=== PATIENT | male | born 1990 | race Caucasian/White ===

== ENCOUNTER 2018-12-20 15:32 | Emergency (ER) | payer OTHER ==
[2018-12-20 16:17] VITALS: BP 135/84; PULSE 88; TEMP 97.7; BMI 21.2
[2018-12-20] MEDS ORDERED: morphine CARPU-JECT 4 MG/1 ML DISP.SYRIN IVPUSH ONE (16:32)
[2018-12-20] MEDS ORDERED: CLINDAMYCIN 600MG PREMIX IVPB 600 MG/50 ML BAG IVPB ONE (16:32)
[2018-12-20] MEDS ORDERED: ONDANSETRON 4 MG/2 ML VIAL ONE ×2 (16:55→17:12)
[2018-12-20] MEDS ORDERED: morphine SULFATE 4 MG/ML VIAL ONE (16:55)
[2018-12-20] MEDS ORDERED: LIDOCAINE 1%/EPI 1:100000 (20 ML MULTI DOSE VIAL) INF ONE (17:09)
[2018-12-20] MEDS ORDERED: LIDOCAINE HCL 2% (20ML MULTI-DOSE VIAL) NR ONE (17:12)
[2018-12-20 17:13] LABS: BASO % 0.5 % (0-2.0); EOS % 0.5 % (0-4.5); HEMATOCRIT 50.7 % (35.4-49); HEMOGLOBIN 16.8 GM/dl (11.7-16.9); LYMPH % 16.2 % (8-40); MCH 28.5 pg (25.7-33.7); MCHC 33.1 g/dl (32.0-35.9); MEAN PLT VOLUME 9.1 fl (7.5-11.1); MONO % 4.5 % (3.8-10.2); NEUT % 78.3 % (42.8-82.8); PLATELET COUNT 263 K/MM3 (134-434); RBC 5.89 M/mm3 (4.00-5.60); RDW 11.8 % (11.9-15.9); WHITE BLOOD COUNT 12.4 K/mm3 (4.0-10.8)
[2018-12-20 17:27] LABS: BILIRUBIN,TOTAL 0.8 mg/dl (0.2-1); CALCIUM 9.7 mg/dl (8.5-10); CREATININE 0.8 mg/dl (0.55-1.3); POTASSIUM 4.7 mmol/L (3.5-5.1); TOT PROT 7.3 g/dl (6.4-8.2)
--- NOTE | 2018-12-20 17:41 | PDOC ---
Documentation entered by Josefina Dow SCRIBE, acting as scribe for Paula Boggs MD. Paula Boggs MD: This documentation has been prepared by the scribeVictor M Lincy, SCRIBE, under my direction and personally reviewed by me in its entirety. I confirm that the documentation accurately reflects all work, treatment, procedures, and medical decision making performed by me. History of Present Illness - General Chief Complaint: Abscess Boil Stated Complaint: PERIRECTSAL ABSCESS History Source: Patient Exam Limitations: No Limitations - History of Present Illness Initial Comments: 12/20/18 16:40 The patient is a 28-year-old male with a past medical history significant for DM presents to the emergency department with an abscess to the upper inner thigh adjacent to his scrotum. The patient reports he noticed a small boil to the region on Saturday, hes been applying hot water to the area without relief. The patient reports on Saturday the boil has increased in size, and today he had pain with ambulation secondary to the boil. Denies fever or chills. Last glucose level was 175 at 3:00 pm today, which is at baseline for the patient. Allergies: NKDA Past History - Past Medical History Allergies/Adverse Reactions: Allergies Allergy/AdvReac Type Severity Reaction Status Date / Time No Known Allergies Allergy Verified 07/23/13 12:30 Home Medications: Ambulatory Orders Levothyroxine [Synthroid -] 125 mcg PO DAILY 07/23/13 Cholecalciferol (Vitamin D3) [Vitamin D] 3,000 unit PO DAILY 05/09/14 Lisinopril [Prinivil] 10 mg PO DAILY 05/09/14 Clindamycin [Cleocin -] 600 mg PO Q8H #30 capsule 12/20/18 Ibuprofen 800 mg PO TID PRN #30 tablet 12/20/18 Insulin Aspart [Novolog] 0 unit SQ ASDIR 12/20/18 Oxycodone HCl/Acetaminophen [Percocet 5-325 mg Tablet] 1 tab PO Q6H PRN #6 tablet MDD 6 12/20/18 Asthma: Yes (NO MEDS) Diabetes: Yes (INSULIN PUMP) Thyroid Disease: Yes (HYPOTHYROID) - Surgical History Abdominal Surgery: Yes (RIGHT INGUINAL HERNIA) - Immunization History Immunization Up to Date: Yes - Suicide/Smoking/Psychosocial Hx Smoking History: Never smoked Have you smoked in the past 12 months: No Hx Alcohol Use: No Substance Use Type: None Review of Systems - Review of Systems Able to Perform ROS?: Yes Comments:: 12/20/18 16:41 GENERAL/CONSTITUTIONAL: No fever or chills. No weakness. HEAD, EYES, EARS, NOSE AND THROAT: No change in vision. No ear pain or discharge. No sore throat. CARDIOVASCULAR: No chest pain or shortness of breath. RESPIRATORY: No cough, wheezing, or hemoptysis. GASTROINTESTINAL: No nausea, vomiting, diarrhea or constipation. GENITOURINARY: No dysuria, frequency, or change in urination. MUSCULOSKELETAL: No joint or muscle swelling or pain. No neck or back pain. SKIN: +abscess to the upper inner thigh adjacent to his scrotum. No rash. NEUROLOGIC: No headache, vertigo, loss of consciousness, or change in strength/ sensation. ENDOCRINE: No increased thirst. No abnormal weight change. HEMATOLOGIC/LYMPHATIC: No anemia, easy bleeding, or history of blood clots. ALLERGIC/IMMUNOLOGIC: No hives or skin allergy. *Physical Exam - Vital Signs Last Vital Signs Temp Pulse Resp BP Pulse Ox 97.7 F 88 18 135/84 100 12/20/18 15:33 12/20/18 15:33 12/20/18 15:33 12/20/18 15:33 12/20/18 15:33 - Physical Exam Comments: 12/20/18 16:45 General: awake, in no acute distress. Heart: regular rate and rhythm Lung: Breath sounds equal, clear to auscultation bilaterally. No wheezes, and no crackles Abdomen: soft, nontender, nondistended, insulin pump in place. Neurological: Alert, and oriented x3, cranial nerve grossly intact. Ambulatory with a normal gait. Skin: +abscess near his scrotum. Procedures - Incision and Drainage I&D Site: Right: Groin Betadine cleansed: No (cleansed with chlorhexidine) Anesthesia: 2% Lidocaine Volume(ml): 17 Blade Size: 11 Attempts: 1 Plain Packing: No (wound left open) Complications: none Dressing: Yes ED Treatment Course - LABORATORY CBC & Chemistry Diagram: 12/20/18 17:00 12/20/18 17:00 - ADDITIONAL ORDERS Additional order review: Laboratory Results 12/20/18 17:00 Sodium 138 Potassium 4.7 Chloride 102 Carbon Dioxide 30 Anion Gap 6 L BUN 17.0 Creatinine 0.8 Est GFR (CKD-EPI)AfAm 142.89 Est GFR (CKD-EPI)NonAf 123.29 Random Glucose 111 H Calcium 9.7 Total Bilirubin 0.8 AST 15 ALT 12 L Alkaline Phosphatase 122 H Total Protein 7.3 Albumin 4.0 12/20/18 17:00 RBC 5.89 H MCV 86.0 MCHC 33.1 RDW 11.8 L MPV 9.1 Neutrophils % 78.3 Lymphocytes % 16.2 Monocytes % 4.5 Eosinophils % 0.5 Basophils % 0.5 D - Medications Given in the ED: ED Medications Discontinued Medications Generic Name Dose Route Start Last Admin Trade Name Freq PRN Reason Stop Dose Admin Morphine Sulfate 4 mg 12/20/18 16:32 12/20/18 17:02 Morphine Injection - IVPUSH 12/20/18 16:33 4 mg ONCE ONE Administration Medical Decision Making - Medical Decision Making 12/20/18 17:38 Pt presents to the ED complaining of abscess to the L upper thigh. Patient is diabetic, but has no systemic signs of infection. I and D performed in the ED. Given clindamycin. Will check labs to look for evidence of severe infection, and discharge home with PO clinda if labs are negative. Will have patient return to ED in two days for wound check. *DC/Admit/Observation/Transfer Diagnosis at time of Disposition: Abscess - Discharge Dispostion Disposition: HOME Condition at time of disposition: Good Decision to Admit order: No - Prescriptions Prescriptions: Clindamycin [Cleocin -] 600 mg PO Q8H #30 capsule Ibuprofen 800 mg PO TID PRN #30 tablet PRN Reason: Pain - Referrals Referrals: Pierre Dubois MD [Primary Care Provider] - - Patient Instructions Printed Discharge Instructions: DI for Incision and Drainage of a Skin Abscess Additional Instructions: you came to the ED for an abscess. We performed an incision and drainage in the ED. You should wash the wound 4 times a day. You should return to the ED for fever, severe pain, nausea and vomiting, other new or worsening symptoms. You can take ibuprofen that I prescribed for the pain. Return to the ED for fingersticks that are greater than 400 or less than 60, severe abdominal pain, nausea and vomiting. - Post Discharge Activity
[2018-12-20] MEDS ORDERED: CLINDAMYCIN PHOSPHATE 600 MG/4 ML VIAL ONE (18:03)
[2018-12-20] MEDS ORDERED: ONDANSETRON 4 MG/2 ML VIAL IVPUSH ONE (18:21)
== END 2018-12-20 18:41 | disposition home or self-care (01) ==
LOC: FER 15:32
PROC: 0H9AXZZ Drainage of Inguinal Skin, External Approach (ICD-10-PCS; principal; 2018-12-20)
DX: L02.214 Cutaneous abscess of groin (principal); E11.9 Type 2 diabetes mellitus without complications
CPT/HCPCS: 36415; 80053; 85025; 87070; 87186; 87205; 99283-25

== ENCOUNTER 2020-04-23 19:25 | Inpatient (IN) | payer OTHER ==
[2020-04-23] MEDS ORDERED: SODIUM CHLORIDE 0.9% 500 ML INFUS.BAG IV ONE (20:06)
[2020-04-23] MEDS ORDERED: AZITHROMYCIN IVPB 500 MG in DEXTROSE 5%-WATER - 250 ML IVPB ONE (20:09)
[2020-04-23] MEDS ORDERED: DEXAMETHASONE LIQUID 0.5 MG/5 ML PO ONE (20:09)
[2020-04-23] MEDS ORDERED: AZITHROMYCIN 500 MG VIAL IVPB ONE (20:21)
[2020-04-23] MEDS ORDERED: DEXAMETHASONE SOD PHOSPHATE 10 MG/1 ML VIAL ONE (20:26)
[2020-04-23 20:44] LABS: BASO % 1.9 % (0-2.0); EOS % 0.1 % (0-4.5); HEMATOCRIT 46.6 % (35.4-49); LYMPH % 8.8 % (8-40); MCH 31.6 pg (25.7-33.7); MCHC 34.5 g/dl (32.0-35.9); MEAN CELL VOLUME 91.6 fl (80-96); MEAN PLT VOLUME 7.3 fl (7.5-11.1); MONO % 11.3 % (3.8-10.2); NEUT % 77.9 % (42.8-82.8); PLATELET COUNT 375 K/MM3 (134-434); RBC 5.08 M/mm3 (4.00-5.60); RDW 11.7 % (11.9-15.9); WHITE BLOOD COUNT 14.9 K/mm3 (4.0-10.8)
[2020-04-23 20:57] LABS: ALBUMIN 4.1 g/dl (3.4-5.0); CALCIUM 8.7 mg/dl (8.5-10); CREATININE 1.4 mg/dl (0.55-1.3); TOT PROT 7.5 g/dl (6.4-8.2)
[2020-04-23] MEDS ORDERED: INSULIN REGULAR HUMAN 100 UNITS/ML *VIAL SQ ONE (21:00)
[2020-04-23] MEDS ORDERED: INSULIN REGULAR HUMAN 100 UNITS/ML *VIAL IVPUSH ONE (21:01)
[2020-04-23] MEDS ORDERED: KCL 10 MEQ IVPB 10 MEQ/100 ML INFUS.BAG IVPB ONE (21:06)
[2020-04-23] MEDS ORDERED: INSULIN REGULAR HUMAN 100 UNITS/ML *VIAL ONE (21:08)
[2020-04-23] MEDS ORDERED: POTASSIUM CHLORIDE 10 MEQ in SODIUM CHLORIDE 1,000 ML IVPB SCH (21:15)
[2020-04-23 23:38] LABS: CALCIUM 7.8 mg/dl (8.5-10); CREATININE 1.1 mg/dl (0.55-1.3)
[2020-04-24] MEDS ORDERED: INSULIN REGULAR HUMAN 100 UNITS/ML *VIAL SQ ONE (00:21)
[2020-04-24] MEDS ORDERED: SODIUM CHLORIDE 0.9% 500 ML INFUS.BAG IV ONE (00:22)
[2020-04-24] MEDS ORDERED: ACETAMINOPHEN 500 MG TABLET (FP) PO ONE (00:23)
[2020-04-24] MEDS ORDERED: ACETAMINOPHEN 325 MG TABLET (FP) ONE (00:24)
[2020-04-24] MEDS ORDERED: INSULIN REGULAR HUMAN 100 UNITS/ML *VIAL ONE (00:25)
[2020-04-24] MEDS ORDERED: morphine CARPU-JECT 2 MG/1 ML DISP.SYRIN IVPUSH ONE (01:00)
[2020-04-24] MEDS ORDERED: morphine SULFATE 4 MG/ML VIAL ONE (01:02)
[2020-04-24] MEDS ORDERED: POTASSIUM CHLORIDE 20 MEQ PREMIX IVPB 100 ML IVPB ONE (01:14)
[2020-04-24] MEDS ORDERED: KCL 10 MEQ IVPB 20 MEQ/200 ML INFUS.BAG IVPB ONE (01:17)
[2020-04-24] MEDS ORDERED: CEFTRIAXONE 1 GM in DEXTROSE 5%-WATER - 50 ML IVPB ONE (01:19)
[2020-04-24] MEDS ORDERED: cefTRIAXone SODIUM 1 GM VIAL ONE ×2 (01:28→22:44)
[2020-04-24 02:04] LABS: BASO % 0.1 % (0-2.0); HEMATOCRIT 40.8 % (35.4-49); LYMPH % 8.4 % (8-40); MCH 30.6 pg (25.7-33.7); MCHC 34.4 g/dl (32.0-35.9); MEAN CELL VOLUME 88.9 fl (80-96); NEUT % 79.5 % (42.8-82.8); PLATELET COUNT 304 K/MM3 (134-434); RBC 4.59 M/mm3 (4.00-5.60); RDW 12.8 % (11.9-15.9); WHITE BLOOD COUNT 10.6 K/mm3 (4.0-10.0)
[2020-04-24 02:06] LABS: URINE APPEARANCE CLEAR; URINE BILIRUBIN NEGATIVE (NEGATIVE); URINE COLOR YELLOW; URINE GLUCOSE (UA) 3+ (NEGATIVE); URINE KETONE 4+ (NEGATIVE); URINE LEUK ESTERASE NEGATIVE (NEGATIVE); URINE NITRITE NEGATIVE (NEGATIVE); URINE PROTEIN NEGATIVE (NEGATIVE); URINE UROBILINOGEN 0.2 mg/dL (0.2-1.0)
[2020-04-24 02:12] LABS: INR 0.91 (0.83-1.09); PROTHROMBIN TIME (PATIENT) 11.1 SEC (9.7-13.0); VENOUS BASE EXCESS -7.6 mmol/L (-2-2); VENOUS O2 SATURATION 92.9 % (70-80); VENOUS PCO2 29.9 mmHg (38-52); VENOUS PH 7.358 (7.310-7.410)
[2020-04-24 02:24] LABS: CHLORIDE 110 mmol/L (98-107); SODIUM 140 mmol/L (136-145)
[2020-04-24 02:25] LABS: CALCIUM 7.8 mg/dL (8.5-10.1)
[2020-04-24 02:26] LABS: ANION GAP 12 MMOL/L (8-16); BLOOD UREA NITROGEN 8.6 mg/dL (7-18); CO2 19 mmol/L (21-32); GLUCOSE,RANDOM 167 mg/dL (74-106)
[2020-04-24 02:30] LABS: CREATININE 0.9 mg/dL (0.55-1.3)
[2020-04-24] MEDS ORDERED: INSULIN SLIDING SCALE (NOVOLOG) 1 VIAL SQ SCH (04:30)
[2020-04-24] MEDS ORDERED: ACETAMINOPHEN 325 MG TABLET (FP) PO PRN (04:30)
[2020-04-24 05:07] VITALS: BMI 18.6
[2020-04-24 06:50] LABS: CALCIUM 8.4 mg/dL (8.5-10.1)
[2020-04-24 06:51] LABS: ALBUMIN 3.2 g/dl (3.4-5.0); BLOOD UREA NITROGEN 8.9 mg/dL (7-18)
[2020-04-24 06:54] LABS: CREATININE 1.1 mg/dL (0.55-1.3)
[2020-04-24 06:55] LABS: BILIRUBIN,TOTAL 0.5 mg/dL (0.2-1); TOT PROT 6.8 g/dl (6.4-8.2)
[2020-04-24] MEDS ORDERED: INSULIN (LEVEMIR) 100 UNITS/ML UNITS SQ SCH (07:35)
[2020-04-24] MEDS: INSULIN SLIDING SCALE (NOVOLOG) 1 VIAL SQ SCH ×4 (08:00→20:01)
[2020-04-24] MEDS ORDERED: guaiFENesin/D-M SUGAR-FREE/ACLHOL-FREE 118 ML BOTTLE PO PRN (09:25)
[2020-04-24] MEDS ORDERED: ALBUTEROL SO4 2.5/IPRATROPIUM 0.5 INH SOL 3 ML VIAL.NEB. NEB PRN (09:25)
[2020-04-24] MEDS ORDERED: ALBUTEROL SO4 HFA INHALER IH PRN (09:41)
[2020-04-24] MEDS: ENOXAPARIN NA (PORCINE) 40 MG/0.4 ML DISP.SYRIN SQ SCH (10:20)
[2020-04-24] MEDS: PANTOPRAZOLE 40 MG TABLET PO SCH (10:27)
[2020-04-24] MEDS: LEVOTHYROXINE NA 125 MCG TABLET (FP) PO SCH (10:28)
[2020-04-24] MEDS: POTASSIUM CHLORIDE 10 MEQ in SODIUM CHLORIDE 1,000 ML IVPB SCH (11:28)
[2020-04-24 15:18] LABS: CALCIUM 8.5 mg/dl (8.5-10); CREATININE 0.5 mg/dl (0.55-1.3)
[2020-04-24] MEDS ORDERED: AZITHROMYCIN IVPB 250 MG in DEXTROSE 5%-WATER - 250 ML IVPB SCH (21:00)
[2020-04-24] MEDS: INSULIN (LEVEMIR) 100 UNITS/ML UNITS SQ SCH (21:29)
[2020-04-24] MEDS ORDERED: DEXTROSE 5%-WATER - 50 ML IVPB ONE (22:44)
[2020-04-24] MEDS: CEFTRIAXONE 1 GM in DEXTROSE 5%-WATER - 50 ML IVPB SCH (22:45)
[2020-04-25] MEDS: INSULIN SLIDING SCALE (NOVOLOG) 1 VIAL SQ SCH ×7 (00:31→23:44)
[2020-04-25] MEDS: POTASSIUM CHLORIDE 10 MEQ in SODIUM CHLORIDE 1,000 ML IVPB SCH ×3 (05:58→22:31)
[2020-04-25] MEDS: LEVOTHYROXINE NA 125 MCG TABLET (FP) PO SCH (06:18)
[2020-04-25] MEDS: INSULIN (LEVEMIR) 100 UNITS/ML UNITS SQ SCH ×2 (06:18→21:01)
[2020-04-25 08:39] LABS: ALBUMIN 2.6 g/dl (3.4-5.0); BILIRUBIN,TOTAL 0.2 mg/dl (0.2-1); CALCIUM 8.2 mg/dl (8.5-10); CREATININE 0.5 mg/dl (0.55-1.3); MAGNESIUM 1.9 mg/dL (1.8-2.4); TOT PROT 5.4 g/dl (6.4-8.2)
[2020-04-25 09:29] LABS: BASO % 2.4 % (0-2.0); HEMATOCRIT 41.5 % (35.4-49); HEMOGLOBIN 14.5 GM/dl (11.7-16.9); LYMPH % 23.1 % (8-40); MCH 31.3 pg (25.7-33.7); MCHC 34.9 g/dl (32.0-35.9); MEAN CELL VOLUME 89.8 fl (80-96); MEAN PLT VOLUME 8.1 fl (7.5-11.1); MONO % 7.9 % (3.8-10.2); NEUT % 65.6 % (42.8-82.8); PLATELET COUNT 308 K/MM3 (134-434); RBC 4.62 M/mm3 (4.00-5.60); RDW 11.6 % (11.9-15.9); WHITE BLOOD COUNT 8.9 K/mm3 (4.0-10.8)
[2020-04-25] MEDS: PANTOPRAZOLE 40 MG TABLET PO SCH (09:30)
[2020-04-25] MEDS: ENOXAPARIN NA (PORCINE) 40 MG/0.4 ML DISP.SYRIN SQ SCH (09:31)
[2020-04-25] MEDS ORDERED: LISINOPRIL 10 MG TABLET PO SCH (10:00)
[2020-04-25] MEDS ORDERED: AZITHROMYCIN IVPB 250 MG in SODIUM CHLORIDE 250 ML IVPB SCH ×2 (10:06→21:00)
[2020-04-25] MEDS: ALBUTEROL SO4 HFA INHALER IH SCH ×4 (11:20→21:02)
[2020-04-25] MEDS ORDERED: PT OWN MED DRAWER 7, Y5N ONE (20:38)
[2020-04-25] MEDS ORDERED: INSULIN (LEVEMIR) 100 UNITS/ML UNITS SQ SCH (22:00)
[2020-04-25] MEDS ORDERED: cefTRIAXone SODIUM 1 GM VIAL ONE (22:56)
[2020-04-25] MEDS ORDERED: DEXTROSE 5%-WATER - 50 ML IVPB ONE (22:56)
[2020-04-25] MEDS: CEFTRIAXONE 1 GM in DEXTROSE 5%-WATER - 50 ML IVPB SCH (23:18)
[2020-04-26] MEDS: POTASSIUM CHLORIDE 10 MEQ in SODIUM CHLORIDE 1,000 ML IVPB SCH (03:00)
[2020-04-26] MEDS: LEVOTHYROXINE NA 125 MCG TABLET (FP) PO SCH (06:28)
[2020-04-26] MEDS: INSULIN (LEVEMIR) 100 UNITS/ML UNITS SQ SCH ×2 (06:28→08:45)
[2020-04-26] MEDS ORDERED: INSULIN (NOVOLOG) ASPART 100 UNITS/ML 10ML VIAL ONE ×2 (06:39→08:21)
[2020-04-26] MEDS ORDERED: PT OWN MED DRAWER 7, Y5N ONE (08:21)
[2020-04-26] MEDS ORDERED: INSULIN (LEVEMIR) 100 UNITS/ML UNITS SQ ONE (08:22)
[2020-04-26] MEDS: INSULIN SLIDING SCALE (NOVOLOG) 1 VIAL SQ SCH ×2 (08:45→12:20)
[2020-04-26 09:00] LABS: BLOOD UREA NITROGEN 5.8 mg/dL (7-18); CALCIUM 8.5 mg/dL (8.5-10.1)
[2020-04-26 09:04] LABS: CREATININE 0.5 mg/dL (0.55-1.3)
[2020-04-26] MEDS: PANTOPRAZOLE 40 MG TABLET PO SCH (09:08)
[2020-04-26] MEDS: ENOXAPARIN NA (PORCINE) 40 MG/0.4 ML DISP.SYRIN SQ SCH (09:08)
[2020-04-26] MEDS: ALBUTEROL SO4 HFA INHALER IH SCH (09:09)
[2020-04-26 15:03] VITALS: BP 127/82; PULSE 102; TEMP 98
== END 2020-04-26 18:04 | disposition home or self-care (01) | DRG 177 ==
LOC: FER 19:25 → FM/S 23:57 → UNDOADMIN 04-24 04:36 → FM/S 04-24 04:36 → J7W 04-25 13:14
PROVIDERS: ADMIT Internal Medicine; ATTEND Internal Medicine
DX: U07.1 COVID-19 (principal); J12.82 Pneumonia due to coronavirus disease 2019; E10.10 Type 1 diabetes mellitus with ketoacidosis without coma; J45.909 Unspecified asthma, uncomplicated; E03.9 Hypothyroidism, unspecified; K21.9 Gastro-esophageal reflux disease without esophagitis; M79.10 Myalgia, unspecified site
CPT/HCPCS: 36415; 71046-TC-FY; 80048; 80053; 81003; 82010; 82550; 82728; 82803; 82962; 83036; 83615; 83735; 84439; 84443; 84479; 84484; 85025; 85379; 85610; 86140; 87040; 87804; 93005; 99285-25; C9803; U0003

== ENCOUNTER 2020-11-01 11:26 | Emergency (ER) | payer OTHER ==
[2020-11-01 11:58] VITALS: BMI 20.5
[2020-11-01] MEDS ORDERED: DALBAVANCIN HCL 1,500 MG in DEXTROSE 5%-WATER - 500 ML IVPB ONE (12:11)
[2020-11-01] MEDS ORDERED: INSULIN (NOVOLOG) ASPART 100 UNITS/ML 10ML VIAL SQ ONE (13:24)
[2020-11-01] MEDS ORDERED: SODIUM CHLORIDE 0.9% 500 ML INFUS.BAG IV ONE ×2 (13:28→14:19)
[2020-11-01] MEDS ORDERED: INSULIN (NOVOLOG) ASPART 100 UNITS/ML 10ML VIAL ONE (13:32)
[2020-11-01 17:00] VITALS: BP 128/95; PULSE 93; TEMP 98.8
== END 2020-11-01 17:03 | disposition home or self-care (01) ==
LOC: FER 11:26
PROC: 3E03329 Introduction of Other Anti-infective into Peripheral Vein, Percutaneous Approach (ICD-10-PCS; principal; 2020-11-01)
PROC: 3E033GC Introduction of Other Therapeutic Substance into Peripheral Vein, Percutaneous Approach (ICD-10-PCS; 2020-11-01)
DX: S90.562A Insect bite (nonvenomous), left ankle, initial encounter (principal); L03.116 Cellulitis of left lower limb
CPT/HCPCS: 82962; 99284-25; J0875

== ENCOUNTER 2020-11-27 22:47 | Inpatient (IN) | payer OTHER ==
[2020-11-27] MEDS ORDERED: ACETAMINOPHEN INJECTION 100 ML IVPB ONE (23:11)
[2020-11-27] MEDS ORDERED: METOCLOPRAMIDE HCL INJECTION 10 MG/2 ML VIAL IVPUSH STA (23:18)
[2020-11-27] MEDS ORDERED: ACETAMINOPHEN 1000 MG/100 ML VIAL (NON FORMULARY) IVPB ONE (23:18)
[2020-11-27] MEDS ORDERED: LACTATED RINGERS SOLUTION 1000 ML INFUS.BAG IV ONE (23:19)
[2020-11-27 23:38] LABS: VENOUS BASE EXCESS -24.9 mmol/L (-2-2); VENOUS O2 SATURATION 59.7 % (70-80); VENOUS PCO2 23.7 mmHg (38-52)
[2020-11-27] MEDS ORDERED: METOCLOPRAMIDE HCL INJECTION 10 MG/2 ML VIAL ONE (23:38)
[2020-11-27 23:39] LABS: HEMATOCRIT 51.8 % (35.4-49); MCH 31.3 pg (25.7-33.7); MCHC 32.7 g/dl (32.0-35.9); MEAN CELL VOLUME 95.7 fl (80-96); PLATELET COUNT 412 10^3/uL (134-434); RBC 5.41 M/mm3 (4.00-5.60); RDW 13.4 % (11.9-15.9); WHITE BLOOD COUNT 16.1 K/mm3 (4.0-10.0)
[2020-11-27 23:42] LABS: VENOUS PH 6.983 (7.310-7.410)
[2020-11-27 23:44] LABS: ADD RBC MORPHOLOGY YES
[2020-11-27 23:58] LABS: CHLORIDE 98 mmol/L (98-107); SODIUM 130 mmol/L (136-145)
[2020-11-28] LABS: CALCIUM 8.8 mg/dL (8.5-10.1)
[2020-11-28 00:01] LABS: ANION GAP 26 MMOL/L (8-16); BLOOD UREA NITROGEN 20.2 mg/dL (7-18); CO2 7 mmol/L (21-32)
[2020-11-28 00:04] LABS: CREATININE 1.3 mg/dL (0.55-1.3); SGOT/AST 22 U/L (15-37); SGPT/ALT 21 U/L (13-61)
[2020-11-28 00:06] LABS: BILIRUBIN,TOTAL 0.6 mg/dL (0.2-1); TOT PROT 7.8 g/dl (6.4-8.2)
[2020-11-28 00:07] LABS: ALK PHOS 143 U/L (45-117)
[2020-11-28 00:22] LABS: GLUCOSE,RANDOM 496 mg/dL (74-106)
[2020-11-28] MEDS ORDERED: INSULIN REGULAR HUMAN 100 UNITS/ML *VIAL SQ ONE (00:58)
[2020-11-28] MEDS ORDERED: INSULIN REGULAR HUMAN 100 UNITS/ML *VIAL IVPUSH ONE (01:00)
[2020-11-28] MEDS ORDERED: SODIUM CHLORIDE 0.45% 1,000 ML IV SCH ×2 (01:15→12:30)
[2020-11-28] MEDS ORDERED: PANTOPRAZOLE SODIUM 40 MG VIAL IVPUSH ONE (01:37)
[2020-11-28] MEDS ORDERED: ACETAMINOPHEN 1000 MG/100 ML VIAL (NON FORMULARY) IVPB PRN (01:38)
[2020-11-28 01:43] LABS: EPI CELLS 2 /uL (0-25.1); HYALINE CASTS 2 /uL (0-3.1); URINE APPEARANCE CLEAR; URINE BACTERIA 2 /uL (0-1359); URINE BILIRUBIN NEGATIVE (NEGATIVE); URINE COLOR YELLOW; URINE GLUCOSE (UA) 3+ (NEGATIVE); URINE KETONE 3+ (NEGATIVE); URINE LEUK ESTERASE NEGATIVE (NEGATIVE); URINE NITRITE NEGATIVE (NEGATIVE); URINE PROTEIN 1+ (NEGATIVE); URINE RBC 4 /uL (0-23.9); URINE UROBILINOGEN 0.2 mg/dL (0.2-1.0); URINE WBC 3 /uL (0-25.8)
[2020-11-28] MEDS ORDERED: SODIUM CHLORIDE 1,000 ML IV SCH (01:45)
[2020-11-28] MEDS ORDERED: INSULIN REGULAR 100 UNITS in SODIUM CHLORIDE 99 ML IVPB SCH (01:45)
[2020-11-28] MEDS ORDERED: ONDANSETRON 4 MG/2 ML VIAL IVPUSH PRN (01:50)
[2020-11-28] MEDS ORDERED: POTASSIUM CHLORIDE TABS 20 MEQ TABLET.ER (FP) PO ONE ×3 (02:03→05:27)
[2020-11-28 02:11] LABS: ARTERIAL BLD GAS O2 SATURATION 97.7 % (95-98); ARTERIAL BLOOD GAS BASE EXCESS -24.5 mmol/L (-2-2); ARTERIAL BLOOD GAS PCO2 < 16.70 mmHg (35-45); ARTERIAL BLOOD GAS PO2 139.6 mmHg (80-100)
[2020-11-28 02:15] LABS: ARTERIAL BLOOD GAS pH 7.056 (7.350-7.450)
[2020-11-28] MEDS ORDERED: PANTOPRAZOLE SODIUM 40 MG VIAL ONE (02:15)
[2020-11-28] MEDS ORDERED: HEPARIN NA (PORCINE) 5,000 UNITS/ML 1ML VIAL ONE ×4 (02:15→21:03)
[2020-11-28 02:18] LABS: CHLORIDE 101 mmol/L (98-107); SODIUM 133 mmol/L (136-145)
[2020-11-28 02:19] LABS: BLOOD UREA NITROGEN 19.6 mg/dL (7-18); CALCIUM 8.2 mg/dL (8.5-10.1)
[2020-11-28 02:20] LABS: ANION GAP 26 MMOL/L (8-16); CO2 6 mmol/L (21-32); MAGNESIUM 2.3 mg/dL (1.8-2.4)
[2020-11-28] MEDS: HEPARIN NA (PORCINE) 5,000 UNITS/ML 1ML VIAL SQ SCH ×4 (02:22→21:09)
[2020-11-28 02:23] LABS: CREATININE 1.3 mg/dL (0.55-1.3); PHOSPHOROUS 3.3 mg/dL (2.5-4.9)
[2020-11-28 02:25] LABS: INR 0.87 (0.83-1.09); PROTHROMBIN TIME (PATIENT) 10.7 SEC (9.7-13.0)
[2020-11-28 02:28] LABS: ACTIVATED PTT 29.6 SECONDS (25.2-36.5)
[2020-11-28 02:42] LABS: GLUCOSE,RANDOM 424 mg/dL (74-106)
[2020-11-28] MEDS ORDERED: SODIUM CHLORIDE 0.45%/POT 20 MEQ/1,000 ML INFUS.BAG IV SCH (03:00)
[2020-11-28] MEDS ORDERED: MORPHINE SULFATE 2 MG/ML VIAL IVPUSH ONE (03:12)
[2020-11-28] MEDS ORDERED: MORPHINE SULFATE 2 MG/ML VIAL ONE (03:21)
[2020-11-28] MEDS ORDERED: ATORVASTATIN CA 80 MG TABLET (FP) PO ONE (04:00)
[2020-11-28] MEDS ORDERED: ASPIRIN 81 MG CHEWABLE TABLETS PO ONE (04:00)
[2020-11-28 04:35] LABS: CHLORIDE 104 mmol/L (98-107); SODIUM 133 mmol/L (136-145)
[2020-11-28 04:36] LABS: CALCIUM 7.8 mg/dL (8.5-10.1)
[2020-11-28 04:37] LABS: ANION GAP 22 MMOL/L (8-16); CO2 7 mmol/L (21-32); GLUCOSE,RANDOM 262 mg/dL (74-106)
[2020-11-28 05:49] LABS: BASO % 0.7 % (0-2.0); EOS % 0.3 % (0-4.5); HEMOGLOBIN 15.3 GM/dL (11.7-16.9); LYMPH % 18.1 % (8-40); MCH 32.3 pg (25.7-33.7); MCHC 34.8 g/dl (32.0-35.9); MEAN CELL VOLUME 92.8 fl (80-96); MEAN PLT VOLUME 7.6 fl (7.5-11.1); MONO % 4.7 % (3.8-10.2); NEUT % 76.2 % (42.8-82.8); PLATELET COUNT 326 10^3/uL (134-434); RBC 4.74 M/mm3 (4.00-5.60); RDW 12.8 % (11.9-15.9); WHITE BLOOD COUNT 14.6 K/mm3 (4.0-10.0)
[2020-11-28 06:28] LABS: CALCIUM 7.7 mg/dL (8.5-10.1)
[2020-11-28 06:29] LABS: BLOOD UREA NITROGEN 15.2 mg/dL (7-18)
[2020-11-28 06:32] LABS: CREATININE 0.9 mg/dL (0.55-1.3)
[2020-11-28] MEDS: D5-1/2NS+20 MEQ KCL - 20 MEQ/1,000 ML INFUS.BAG IV SCH ×2 (07:50→08:28)
[2020-11-28] MEDS ORDERED: CHOLECALCIFEROL (VIT D3) 1,000 UNIT (25 MCG) TABLET PO ONE (08:00)
[2020-11-28] MEDS ORDERED: ONDANSETRON 4 MG/2 ML VIAL ONE (08:12)
[2020-11-28 09:06] LABS: CALCIUM 8.1 mg/dL (8.5-10.1)
[2020-11-28] MEDS ORDERED: DEXTROSE 5%-0.45% SALINE 1,000 ML IV SCH (10:00)
[2020-11-28] MEDS ORDERED: MUPIROCIN 2% TOPICAL OINTMENT FOR DECOLONIZATION NS SCH (10:00)
[2020-11-28] MEDS ORDERED: INSULIN (LEVEMIR) 100 UNITS/ML UNITS SQ ONE (11:06)
[2020-11-28] MEDS: INSULIN (LEVEMIR) 100 UNITS/ML UNITS SQ SCH ×2 (11:17→21:09)
[2020-11-28] MEDS: SODIUM CHLORIDE 1,000 ML IV SCH (13:28)
[2020-11-28] MEDS ORDERED: INSULIN SLIDING SCALE (NOVOLOG) 1 VIAL SQ SCH (16:30)
[2020-11-28] MEDS: INSULIN SLIDING SCALE (NOVOLOG) 1 VIAL SQ SCH ×4 (18:54→21:11)
[2020-11-28] MEDS ORDERED: INSULIN SLIDING SCALE (NOVOLOG) 1 VIAL SQ ONE (21:03)
[2020-11-28] MEDS ORDERED: CHLORHEXIDINE GLUCONATE 4% CLEANSER FOR DECOLONIZATION TP SCH (22:00)
[2020-11-29 00:03] VITALS: BMI 18.8
[2020-11-29] MEDS: SODIUM CHLORIDE 1,000 ML IV SCH ×3 (00:49→14:44)
[2020-11-29] MEDS: HEPARIN NA (PORCINE) 5,000 UNITS/ML 1ML VIAL SQ SCH ×2 (05:53→14:58)
[2020-11-29] MEDS: INSULIN SLIDING SCALE (NOVOLOG) 1 VIAL SQ SCH ×2 (06:18→12:42)
[2020-11-29] MEDS: INSULIN (LEVEMIR) 100 UNITS/ML UNITS SQ SCH (07:48)
[2020-11-29 08:01] LABS: BASO % 0.7 % (0-2.0); EOS % 3.3 % (0-4.5); HEMATOCRIT 40.7 % (35.4-49); HEMOGLOBIN 14.3 GM/dL (11.7-16.9); LYMPH % 30.2 % (8-40); MCH 31.5 pg (25.7-33.7); MEAN CELL VOLUME 89.8 fl (80-96); MEAN PLT VOLUME 8.3 fl (7.5-11.1); MONO % 10.2 % (3.8-10.2); NEUT % 55.6 % (42.8-82.8); PLATELET COUNT 251 10^3/uL (134-434); RBC 4.53 M/mm3 (4.00-5.60); RDW 12.7 % (11.9-15.9); WHITE BLOOD COUNT 5.9 K/mm3 (4.0-10.0)
[2020-11-29 08:15] LABS: CALCIUM 7.6 mg/dL (8.5-10.1)
[2020-11-29 08:16] LABS: BLOOD UREA NITROGEN 11.1 mg/dL (7-18); MAGNESIUM 1.8 mg/dL (1.8-2.4)
[2020-11-29 08:19] LABS: CREATININE 0.6 mg/dL (0.55-1.3)
[2020-11-29 08:20] LABS: BILIRUBIN,TOTAL 0.3 mg/dL (0.2-1)
[2020-11-29 08:50] LABS: ALBUMIN 2.8 g/dl (3.4-5.0); TOT PROT 5.5 g/dl (6.4-8.2)
[2020-11-29] MEDS ORDERED: MAGNESIUM SULF 50% (8.12 MEQ/2 ML-1 GM VIAL) IVPB ONE (11:23)
[2020-11-29] MEDS ORDERED: KCL 10 MEQ IVPB 10 MEQ/100 ML INFUS.BAG IVPB SCH (11:30)
[2020-11-29] MEDS ORDERED: POTASSIUM CHLORIDE TABS 10 MEQ TABLET.ER (FP) PO SCH (11:32)
[2020-11-29] MEDS ORDERED: POTASSIUM CHLORIDE TABS 20 MEQ TABLET.ER (FP) PO ONE (11:37)
[2020-11-29] MEDS ORDERED: POTASSIUM CHLORIDE TABS 20 MEQ TABLET.ER (FP) PO SCH (11:44)
[2020-11-29] MEDS ORDERED: INSULIN (NOVOLOG) ASPART 100 UNITS/ML 10ML VIAL ONE (12:08)
[2020-11-29 15:05] VITALS: BP 133/88; PULSE 93; TEMP 98.5
[2020-11-29] MEDS ORDERED: INSULIN SLIDING SCALE (NOVOLOG) 1 VIAL SQ SCH (15:14)
[2020-11-29] MEDS ORDERED: ACETAMINOPHEN 500 MG TABLET (FP) PO PRN (16:43)
[2020-11-29] MEDS ORDERED: NAPH,MB-DB/K PH,MBDB POWDER PACKET PO ONE (17:59)
[2020-11-29] MEDS ORDERED: INSULIN (LEVEMIR) 100 UNITS/ML UNITS SQ SCH (22:00)
[2020-11-30] MEDS ORDERED: LEVOTHYROXINE NA 125 MCG TABLET (FP) PO SCH (07:00)
[2020-11-30] MEDS ORDERED: INSULIN (LEVEMIR) 100 UNITS/ML UNITS SQ SCH (07:00)
== END 2020-11-29 19:16 | disposition home or self-care (01) | DRG 420 ==
LOC: JER 22:47 → JERBED 11-28 06:31 → J7W 11-28 21:54
PROVIDERS: ADMIT Internal Medicine Pulmonary Disease; ATTEND Internal Medicine
DX: E10.10 Type 1 diabetes mellitus with ketoacidosis without coma (principal); E03.9 Hypothyroidism, unspecified; Z79.4 Long term (current) use of insulin; Z91.14 Patient's other noncompliance with medication regimen; E87.1 Hypo-osmolality and hyponatremia; R07.89 Other chest pain; E86.0 Dehydration
CPT/HCPCS: 36415; 36600; 71045-TC-FY; 80048; 80053; 80061; 81003; 82010; 82306; 82550; 82803; 82962; 83036; 83605; 83735; 83930; 83935; 84100; 84132; 84439; 84443; 84484; 85025; 85610; 85730; 87077; 87086; 87804; 93005; 93010; 93306-TC; 99285-25; C9803; J0131; J1644; J3480; U0003; U0005

== ENCOUNTER 2021-05-18 10:38 | Inpatient (IN) | payer OTHER ==
[2021-05-18] MEDS ORDERED: LACTATED RINGERS SOLUTION 1000 ML INFUS.BAG IV ONE ×2 (11:09→12:16)
[2021-05-18] MEDS ORDERED: ONDANSETRON 4 MG/2 ML VIAL IVPUSH ONE (11:11)
[2021-05-18 11:41] LABS: BASO % 0.9 % (0-2.0); EOS % 0.5 % (0-4.5); HEMATOCRIT 49.4 % (35.4-49); LYMPH % 19.4 % (8-40); MCH 31.4 pg (25.7-33.7); MCHC 32.3 g/dl (32.0-35.9); MEAN CELL VOLUME 97.3 fl (80-96); MONO % 9.1 % (3.8-10.2); NEUT % 70.1 % (42.8-82.8); PLATELET COUNT 368 10^3/uL (134-434); RBC 5.08 M/mm3 (4.00-5.60); RDW 13.9 % (11.9-15.9); WHITE BLOOD COUNT 6.9 K/mm3 (4.0-10.0)
[2021-05-18 11:48] LABS: INR 0.86 (0.83-1.09); PROTHROMBIN TIME (PATIENT) 9.9 SEC (9.7-13.0)
[2021-05-18 11:57] LABS: VENOUS BASE EXCESS -19.3 mmol/L (-2-2); VENOUS O2 SATURATION 88.1 % (70-80); VENOUS PCO2 19.9 mmHg (38-52)
[2021-05-18 11:58] LABS: CHLORIDE 89 mmol/L (98-107); SODIUM 124 mmol/L (136-145)
[2021-05-18 11:59] LABS: VENOUS PH 7.164 (7.310-7.410)
[2021-05-18 12:00] LABS: CALCIUM 8.4 mg/dL (8.5-10.1)
[2021-05-18 12:01] LABS: ALBUMIN 3.6 g/dl (3.4-5.0); ANION GAP 27 MMOL/L (8-16); BLOOD UREA NITROGEN 19.8 mg/dL (7-18); CO2 8 mmol/L (21-32); MAGNESIUM 2.3 mg/dL (1.8-2.4)
[2021-05-18 12:04] LABS: PHOSPHOROUS 4.4 mg/dL (2.5-4.9); SGOT/AST 9 U/L (15-37); SGPT/ALT 17 U/L (13-61)
[2021-05-18 12:06] LABS: BILIRUBIN,TOTAL 0.6 mg/dL (0.2-1)
[2021-05-18 12:07] LABS: ALK PHOS 243 U/L (45-117); GLUCOSE,RANDOM 797 mg/dL (74-106)
[2021-05-18] MEDS ORDERED: POTASSIUM CHLORIDE ORAL LIQUID 20 MEQ/15 ML PO ONE (12:14)
[2021-05-18] MEDS ORDERED: INSULIN REGULAR HUMAN 100 UNITS/ML *VIAL IVPUSH ONE (12:16)
[2021-05-18] MEDS ORDERED: INSULIN REGULAR 100 UNITS in SODIUM CHLORIDE 99 ML IVPB SCH (12:30)
[2021-05-18] MEDS ORDERED: SODIUM CHLORIDE 0.9%/KCL 20 MEQ/1,000 ML INFUS.BAG IV SCH (13:00)
[2021-05-18] MEDS ORDERED: SODIUM CHLORIDE 1,000 ML IV SCH (13:00)
[2021-05-18] MEDS ORDERED: MUPIROCIN 2% TOPICAL OINTMENT FOR DECOLONIZATION NS SCH (13:00)
[2021-05-18] MEDS ORDERED: POTASSIUM CHLORIDE ORAL LIQUID 20 MEQ/15 ML ONE (13:03)
[2021-05-18] MEDS ORDERED: ONDANSETRON 4 MG/2 ML VIAL ONE (13:03)
[2021-05-18 15:02] LABS: URINE APPEARANCE CLEAR; URINE BILIRUBIN NEGATIVE (NEGATIVE); URINE COLOR YELLOW; URINE GLUCOSE (UA) 3+ (NEGATIVE); URINE KETONE 4+ (NEGATIVE); URINE LEUK ESTERASE NEGATIVE (NEGATIVE); URINE NITRITE NEGATIVE (NEGATIVE); URINE PROTEIN NEGATIVE (NEGATIVE); URINE UROBILINOGEN 0.2 mg/dL (0.2-1.0)
[2021-05-18 15:03] LABS: CHLORIDE 99 mmol/L (98-107); SODIUM 130 mmol/L (136-145)
[2021-05-18 15:04] LABS: ANION GAP 21 MMOL/L (8-16); BLOOD UREA NITROGEN 17.2 mg/dL (7-18); CALCIUM 8.2 mg/dL (8.5-10.1); CO2 10 mmol/L (21-32)
[2021-05-18 15:12] LABS: GLUCOSE,RANDOM 516 mg/dL (74-106)
[2021-05-18] MEDS ORDERED: ENOXAPARIN NA (PORCINE) 40 MG/0.4 ML DISP.SYRIN SQ ONE (15:19)
[2021-05-18] MEDS: ENOXAPARIN NA (PORCINE) 40 MG/0.4 ML DISP.SYRIN SQ SCH (15:22)
[2021-05-18 18:03] LABS: BLOOD UREA NITROGEN 12.9 mg/dL (7-18); CALCIUM 7.9 mg/dL (8.5-10.1)
[2021-05-18 18:07] LABS: CREATININE 0.8 mg/dL (0.55-1.3)
[2021-05-18] MEDS ORDERED: D5-1/2NS+20 MEQ KCL - 20 MEQ/1,000 ML INFUS.BAG IV SCH (19:15)
[2021-05-18 21:05] LABS: BLOOD UREA NITROGEN 11.8 mg/dL (7-18); CALCIUM 7.7 mg/dL (8.5-10.1)
[2021-05-18 21:09] LABS: CREATININE 0.7 mg/dL (0.55-1.3)
[2021-05-18] MEDS ORDERED: CHLORHEXIDINE GLUCONATE 4% CLEANSER FOR DECOLONIZATION TP SCH (22:00)
[2021-05-18] MEDS: MUPIROCIN 2% TOPICAL OINTMENT FOR DECOLONIZATION NS SCH (22:17)
[2021-05-18] MEDS: INSULIN SLIDING SCALE (NOVOLOG) 1 VIAL SQ SCH (22:35)
[2021-05-18] MEDS: INSULIN (LEVEMIR) 100 UNITS/ML UNITS SQ SCH (22:36)
[2021-05-18] MEDS: LACTATED RINGERS SOLUTION 1,000 ML/1,000 ML INFUS.BAG IV SCH (22:37)
[2021-05-19] MEDS ORDERED: ACETAMINOPHEN 500 MG TABLET (FP) PO PRN (00:54)
[2021-05-19] MEDS ORDERED: ACETAMINOPHEN 325 MG TABLET (FP) PO PRN ×3 (00:59→12:36)
[2021-05-19 04:43] VITALS: BMI 18.8
[2021-05-19] MEDS: INSULIN (LEVEMIR) 100 UNITS/ML UNITS SQ SCH (06:13)
[2021-05-19] MEDS: INSULIN SLIDING SCALE (NOVOLOG) 1 VIAL SQ SCH ×4 (06:13→21:06)
[2021-05-19] MEDS: LACTATED RINGERS SOLUTION 1,000 ML/1,000 ML INFUS.BAG IV SCH (06:25)
[2021-05-19] MEDS ORDERED: LEVOTHYROXINE NA 125 MCG TABLET (FP) PO SCH (07:00)
[2021-05-19 07:17] LABS: BASO % 0.6 % (0-2.0); EOS % 1.9 % (0-4.5); HEMATOCRIT 39.6 % (35.4-49); HEMOGLOBIN 13.4 GM/dL (11.7-16.9); LYMPH % 29.1 % (8-40); MCH 31.3 pg (25.7-33.7); MCHC 33.8 g/dl (32.0-35.9); MEAN CELL VOLUME 92.8 fl (80-96); NEUT % 57.4 % (42.8-82.8); PLATELET COUNT 312 10^3/uL (134-434); RBC 4.27 M/mm3 (4.00-5.60); RDW 13.9 % (11.9-15.9)
[2021-05-19 07:37] LABS: BLOOD UREA NITROGEN 16.5 mg/dL (7-18)
[2021-05-19 07:39] LABS: CALCIUM 8.1 mg/dL (8.5-10.1); CREATININE 0.7 mg/dL (0.55-1.3); MAGNESIUM 1.8 mg/dL (1.8-2.4)
[2021-05-19 07:42] LABS: PHOSPHOROUS 2.6 mg/dL (2.5-4.9)
[2021-05-19 07:44] LABS: BILIRUBIN,TOTAL 0.4 mg/dL (0.2-1); TOT PROT 5.3 g/dl (6.4-8.2)
[2021-05-19 07:52] LABS: ALBUMIN 2.6 g/dl (3.4-5.0)
[2021-05-19] MEDS: ENOXAPARIN NA (PORCINE) 40 MG/0.4 ML DISP.SYRIN SQ SCH (09:36)
[2021-05-19] MEDS: MUPIROCIN 2% TOPICAL OINTMENT FOR DECOLONIZATION NS SCH (09:41)
[2021-05-19] MEDS ORDERED: INSULIN SLIDING SCALE (NOVOLOG) 1 VIAL SQ SCH (16:30)
[2021-05-19] MEDS ORDERED: INSULIN (LEVEMIR) 100 UNITS/ML UNITS SQ ONE ×3 (18:27→21:05)
[2021-05-19] MEDS ORDERED: INSULIN (NOVOLOG) ASPART 100 UNITS/ML 10ML VIAL SQ ONE ×2 (21:05→22:36)
[2021-05-19] MEDS ORDERED: SODIUM CHLORIDE 1,000 ML IV STA ×2 (21:12→22:36)
[2021-05-19] MEDS ORDERED: INSULIN (LEVEMIR) 100 UNITS/ML UNITS SQ SCH ×3 (22:00)
[2021-05-19 22:03] LABS: CHLORIDE 95 mmol/L (98-107); SODIUM 133 mmol/L (136-145)
[2021-05-19 22:05] LABS: ANION GAP 17 MMOL/L (8-16); CALCIUM 8.5 mg/dL (8.5-10.1); CO2 22 mmol/L (21-32)
[2021-05-19 22:09] LABS: CREATININE 1.1 mg/dL (0.55-1.3)
[2021-05-19 22:14] LABS: GLUCOSE,RANDOM 442 mg/dL (74-106)
[2021-05-20 01:48] LABS: CALCIUM 8.4 mg/dL (8.5-10.1)
[2021-05-20 01:49] LABS: BLOOD UREA NITROGEN 20.6 mg/dL (7-18)
[2021-05-20 01:52] LABS: CREATININE 0.7 mg/dL (0.55-1.3)
[2021-05-20 03:09] LABS: VENOUS BASE EXCESS -3.2 mmol/L (-2-2); VENOUS O2 SATURATION 97.4 % (70-80); VENOUS PCO2 35.9 mmHg (38-52); VENOUS PH 7.388 (7.310-7.410)
[2021-05-20] MEDS: Insulin (LOG) Aspart 100 UNITS/ML VIAL SQ SCH ×3 (06:14→16:27)
[2021-05-20] MEDS: INSULIN SLIDING SCALE (NOVOLOG) 1 VIAL SQ SCH ×2 (06:14→12:03)
[2021-05-20] MEDS: LEVOTHYROXINE NA 125 MCG TABLET (FP) PO SCH (06:15)
[2021-05-20] MEDS ORDERED: INSULIN (LEVEMIR) 100 UNITS/ML UNITS SQ SCH ×2 (07:00)
[2021-05-20] MEDS ORDERED: LEVOTHYROXINE NA 125 MCG TABLET (FP) PO SCH (07:00)
[2021-05-20 09:28] LABS: BASO % 0.5 % (0-2.0); EOS % 1.1 % (0-4.5); HEMATOCRIT 39.3 % (35.4-49); MCH 32.7 pg (25.7-33.7); MCHC 35.7 g/dl (32.0-35.9); MEAN CELL VOLUME 91.6 fl (80-96); MEAN PLT VOLUME 6.9 fl (7.5-11.1); MONO % 12.5 % (3.8-10.2); NEUT % 61.9 % (42.8-82.8); PLATELET COUNT 275 10^3/uL (134-434); RBC 4.29 M/mm3 (4.00-5.60); RDW 14.1 % (11.9-15.9)
[2021-05-20 09:51] LABS: CREATININE 0.5 mg/dL (0.55-1.3)
[2021-05-20 09:52] LABS: ALBUMIN 2.7 g/dl (3.4-5.0); CALCIUM 8.4 mg/dL (8.5-10.1)
[2021-05-20 09:53] LABS: BLOOD UREA NITROGEN 14.7 mg/dL (7-18); MAGNESIUM 2.1 mg/dL (1.8-2.4)
[2021-05-20 09:54] LABS: TOT PROT 5.4 g/dl (6.4-8.2)
[2021-05-20 10:00] LABS: BILIRUBIN,TOTAL 0.2 mg/dL (0.2-1)
[2021-05-20] MEDS ORDERED: ENOXAPARIN NA (PORCINE) 40 MG/0.4 ML DISP.SYRIN SQ SCH (10:00)
[2021-05-20] MEDS: ENOXAPARIN NA (PORCINE) 40 MG/0.4 ML DISP.SYRIN SQ SCH (10:11)
[2021-05-20] MEDS ORDERED: INSULIN SLIDING SCALE (NOVOLOG) 1 VIAL SQ SCH (16:30)
[2021-05-20] MEDS ORDERED: INSULIN (NOVOLOG) ASPART 100 UNITS/ML 10ML VIAL SQ ONE (21:08)
[2021-05-20] MEDS: INSULIN (LEVEMIR) 100 UNITS/ML UNITS SQ SCH (21:19)
[2021-05-20 21:48] LABS: CHLORIDE 91 mmol/L (98-107); SODIUM 131 mmol/L (136-145)
[2021-05-20 21:50] LABS: ANION GAP 8 MMOL/L (8-16); CALCIUM 8.8 mg/dL (8.5-10.1); CO2 31 mmol/L (21-32)
[2021-05-20 21:54] LABS: CREATININE 1.1 mg/dL (0.55-1.3)
[2021-05-20 22:25] LABS: GLUCOSE,RANDOM 610 mg/dL (74-106)
[2021-05-21] MEDS ORDERED: INSULIN SLIDING SCALE (NOVOLOG) 1 VIAL SQ SCH (00:23)
[2021-05-21] MEDS ORDERED: INSULIN (NOVOLOG) ASPART 100 UNITS/ML 10ML VIAL SQ ONE (00:27)
[2021-05-21] MEDS ORDERED: DEXTROSE 50%-WATER 25 GM/50 ML DISP.SYRIN IVPUSH PRN (00:28)
[2021-05-21 03:36] LABS: CALCIUM 8.7 mg/dL (8.5-10.1)
[2021-05-21 03:39] LABS: CREATININE 0.8 mg/dL (0.55-1.3)
[2021-05-21] MEDS: Insulin (LOG) Aspart 100 UNITS/ML VIAL SQ SCH ×2 (06:35→12:05)
[2021-05-21] MEDS: INSULIN SLIDING SCALE (NOVOLOG) 1 VIAL SQ SCH ×2 (06:35→12:06)
[2021-05-21] MEDS: INSULIN (LEVEMIR) 100 UNITS/ML UNITS SQ SCH (06:35)
[2021-05-21] MEDS: LEVOTHYROXINE NA 125 MCG TABLET (FP) PO SCH (07:00)
[2021-05-21] MEDS: ENOXAPARIN NA (PORCINE) 40 MG/0.4 ML DISP.SYRIN SQ SCH (09:07)
[2021-05-21 09:23] LABS: BASO % 0.8 % (0-2.0); EOS % 1.7 % (0-4.5); HEMATOCRIT 39.4 % (35.4-49); HEMOGLOBIN 13.9 GM/dL (11.7-16.9); MCH 32.3 pg (25.7-33.7); MCHC 35.2 g/dl (32.0-35.9); MEAN CELL VOLUME 91.8 fl (80-96); MEAN PLT VOLUME 7.3 fl (7.5-11.1); MONO % 13.1 % (3.8-10.2); NEUT % 52.4 % (42.8-82.8); PLATELET COUNT 274 10^3/uL (134-434); RBC 4.29 M/mm3 (4.00-5.60); RDW 13.9 % (11.9-15.9); WHITE BLOOD COUNT 5.2 K/mm3 (4.0-10.0)
[2021-05-21 09:26] LABS: BLOOD UREA NITROGEN 20.3 mg/dL (7-18); CALCIUM 8.7 mg/dL (8.5-10.1); MAGNESIUM 2.4 mg/dL (1.8-2.4)
[2021-05-21 09:29] LABS: CREATININE 0.5 mg/dL (0.55-1.3); PHOSPHOROUS 4.7 mg/dL (2.5-4.9)
[2021-05-21 10:20] VITALS: BP 124/79; PULSE 98; TEMP 97.6
== END 2021-05-21 15:50 | disposition home or self-care (01) | DRG 420 ==
LOC: JER 10:38 → JERBED 12:21 → JICU 18:50 → J5S 05-19 13:59
PROVIDERS: ADMIT Internal Medicine
DX: E10.10 Type 1 diabetes mellitus with ketoacidosis without coma (principal); E03.9 Hypothyroidism, unspecified; E87.1 Hypo-osmolality and hyponatremia; Z91.14 Patient's other noncompliance with medication regimen; R01.1 Cardiac murmur, unspecified; E87.6 Hypokalemia; E86.0 Dehydration
CPT/HCPCS: 36415; 71045-TC-FY; 80048; 80053; 81003; 82010; 82550; 82803; 82962; 83036; 83735; 84100; 84484; 85025; 85610; 87086; 87186; 87804; 93005; 93010; 99291; C9803; U0003; U0005

== ENCOUNTER 2021-06-07 07:00 | Inpatient (IN) | payer OTHER ==
[2021-06-07] MEDS ORDERED: SODIUM CHLORIDE 0.9% 500 ML INFUS.BAG IV ONE (07:45)
[2021-06-07 08:27] LABS: HEMATOCRIT 49.8 % (35.4-49); HEMOGLOBIN 15.8 GM/dL (11.7-16.9); MCH 31.2 pg (25.7-33.7); MCHC 31.6 g/dl (32.0-35.9); MEAN CELL VOLUME 98.7 fl (80-96); MEAN PLT VOLUME 8.1 fl (7.5-11.1); PLATELET COUNT 434 10^3/uL (134-434); RBC 5.04 M/mm3 (4.00-5.60); RDW 13.2 % (11.9-15.9); WHITE BLOOD COUNT 5.3 K/mm3 (4.0-10.0)
[2021-06-07 08:31] LABS: VENOUS O2 SATURATION 60.5 % (70-80); VENOUS PCO2 23.8 mmHg (38-52)
[2021-06-07 08:33] LABS: INR 0.9 (0.83-1.09); PROTHROMBIN TIME (PATIENT) 10.3 SEC (9.7-13.0); VENOUS PH 7.091 (7.310-7.410)
[2021-06-07] MEDS ORDERED: LACTATED RINGERS SOLUTION 1,000 ML/1,000 ML INFUS.BAG IV STA (08:35)
[2021-06-07 08:36] LABS: ACTIVATED PTT 28.6 SECONDS (25.2-36.5)
[2021-06-07 08:50] LABS: CHLORIDE 99 mmol/L (98-107); SODIUM 133 mmol/L (136-145)
[2021-06-07 08:53] LABS: ANION GAP 27 MMOL/L (8-16); CALCIUM 9.6 mg/dL (8.5-10.1); CO2 7 mmol/L (21-32)
[2021-06-07 08:54] LABS: ALBUMIN 3.9 g/dl (3.4-5.0); LIPASE 89 U/L (73-393)
[2021-06-07] MEDS ORDERED: INSULIN REGULAR HUMAN 100 UNITS/ML *VIAL* (FOR IVP) IVPUSH ONE (08:54)
[2021-06-07 08:56] LABS: CREATININE 1.3 mg/dL (0.55-1.3); SGPT/ALT 84 U/L (13-61)
[2021-06-07 08:57] LABS: SGOT/AST 23 U/L (15-37); TOT PROT 8.1 g/dl (6.4-8.2)
[2021-06-07 08:58] LABS: BILIRUBIN,TOTAL 0.6 mg/dL (0.2-1)
[2021-06-07 08:59] LABS: ALK PHOS 240 U/L (45-117)
[2021-06-07 09:18] LABS: GLUCOSE,RANDOM 467 mg/dL (74-106)
[2021-06-07] MEDS ORDERED: KCL 10 MEQ IVPB 10 MEQ/100 ML INFUS.BAG IVPB ONE (09:51)
[2021-06-07 09:53] LABS: EPI CELLS 10 /uL (0-25.1); HYALINE CASTS 2 /uL (0-3.1); URINE APPEARANCE CLEAR; URINE BACTERIA 82 /uL (0-1359); URINE BILIRUBIN NEGATIVE (NEGATIVE); URINE COLOR YELLOW; URINE GLUCOSE (UA) 3+ (NEGATIVE); URINE KETONE 4+ (NEGATIVE); URINE LEUK ESTERASE NEGATIVE (NEGATIVE); URINE NITRITE NEGATIVE (NEGATIVE); URINE PROTEIN 1+ (NEGATIVE); URINE RBC 8 /uL (0-23.9); URINE UROBILINOGEN 0.2 mg/dL (0.2-1.0); URINE WBC 25 /uL (0-25.8)
[2021-06-07] MEDS ORDERED: LACTATED RINGERS SOLUTION 1,000 ML/1,000 ML INFUS.BAG IV SCH (10:00)
[2021-06-07 10:10] LABS: ANISOCYTOSIS 0; MACROCYTOSIS 0
[2021-06-07 10:25] LABS: VENOUS BASE EXCESS -14.8 mmol/L (-2-2); VENOUS O2 SATURATION 88.9 % (70-80); VENOUS PCO2 25.9 mmHg (38-52); VENOUS PH 7.238 (7.310-7.410)
[2021-06-07] MEDS: INSULIN REGULAR 100 UNITS in SODIUM CHLORIDE 99 ML IVPB SCH (10:40)
[2021-06-07] MEDS: KCL 10 MEQ IVPB 10 MEQ/100 ML INFUS.BAG IVPB SCH ×3 (10:47→14:27)
[2021-06-07 10:49] LABS: MAGNESIUM 2.2 mg/dL (1.8-2.4)
[2021-06-07 10:53] LABS: PHOSPHOROUS 4.1 mg/dL (2.5-4.9)
[2021-06-07 10:56] LABS: CREATININE 1.1 mg/dL (0.55-1.3)
[2021-06-07 12:06] LABS: CALCIUM 8.8 mg/dL (8.5-10.1)
[2021-06-07 12:07] LABS: BLOOD UREA NITROGEN 11.8 mg/dL (7-18)
[2021-06-07] MEDS ORDERED: SODIUM CHLORIDE 1,000 ML with POTASSIUM CHLORIDE 20 MEQ IV SCH (12:30)
[2021-06-07] MEDS ORDERED: D5-NS + 20 MEQ KCL - 20 MEQ/1,000 ML INFUS.BAG IV SCH (14:15)
[2021-06-07] MEDS ORDERED: Insulin (LOG) Aspart 100 UNITS/ML VIAL SQ ONE (16:21)
[2021-06-07 17:34] LABS: BLOOD UREA NITROGEN 9.6 mg/dL (7-18); CALCIUM 8.7 mg/dL (8.5-10.1)
[2021-06-07 17:37] LABS: CREATININE 1.1 mg/dL (0.55-1.3)
[2021-06-07 17:39] LABS: BILIRUBIN,TOTAL 0.4 mg/dL (0.2-1); TOT PROT 6.1 g/dl (6.4-8.2)
[2021-06-07] MEDS ORDERED: INSULIN (NOVOLOG) ASPART 100 UNITS/ML 10ML VIAL SQ ONE ×2 (18:18→18:25)
[2021-06-07] MEDS: SODIUM CHLORIDE 0.45%/POT 20 MEQ/1,000 ML INFUS.BAG IV SCH (21:15)
[2021-06-07 22:06] LABS: CALCIUM 8.4 mg/dL (8.5-10.1)
[2021-06-07 22:07] LABS: BLOOD UREA NITROGEN 8.2 mg/dL (7-18)
[2021-06-07 22:10] LABS: CREATININE 1.2 mg/dL (0.55-1.3)
[2021-06-07 22:11] LABS: BILIRUBIN,TOTAL 0.6 mg/dL (0.2-1); TOT PROT 6.4 g/dl (6.4-8.2)
[2021-06-07] MEDS ORDERED: INSULIN (LEVEMIR) 100 UNITS/ML UNITS SQ ONE (22:50)
[2021-06-07] MEDS: CHLORHEXIDINE GLUCONATE 4% CLEANSER FOR DECOLONIZATION TP SCH (23:08)
[2021-06-07] MEDS: MUPIROCIN 2% TOPICAL OINTMENT FOR DECOLONIZATION NS SCH (23:08)
[2021-06-08] MEDS: INSULIN (LEVEMIR) 100 UNITS/ML UNITS SQ SCH ×3 (01:02→21:24)
[2021-06-08 07:17] LABS: CALCIUM 8.1 mg/dL (8.5-10.1)
[2021-06-08 07:18] LABS: ALBUMIN 2.8 g/dl (3.4-5.0); BLOOD UREA NITROGEN 9.7 mg/dL (7-18)
[2021-06-08 07:21] LABS: CREATININE 0.6 mg/dL (0.55-1.3)
[2021-06-08 07:23] LABS: BILIRUBIN,TOTAL 0.3 mg/dL (0.2-1); TOT PROT 5.7 g/dl (6.4-8.2)
[2021-06-08 08:00] LABS: BASO % 0.7 % (0-2.0); EOS % 1.5 % (0-4.5); HEMATOCRIT 39.8 % (35.4-49); HEMOGLOBIN 13.5 GM/dL (11.7-16.9); LYMPH % 20.5 % (8-40); MCH 31.7 pg (25.7-33.7); MEAN CELL VOLUME 93.2 fl (80-96); MEAN PLT VOLUME 7.3 fl (7.5-11.1); MONO % 9.9 % (3.8-10.2); NEUT % 67.4 % (42.8-82.8); PLATELET COUNT 286 10^3/uL (134-434); RBC 4.27 M/mm3 (4.00-5.60); RDW 13.3 % (11.9-15.9)
[2021-06-08 08:26] LABS: VENOUS BASE EXCESS -0.5 mmol/L (-2-2); VENOUS O2 SATURATION 99.2 % (70-80); VENOUS PCO2 45.8 mmHg (38-52); VENOUS PH 7.36 (7.310-7.410)
[2021-06-08 08:47] LABS: BLOOD UREA NITROGEN 8.4 mg/dL (7-18); CALCIUM 7.9 mg/dL (8.5-10.1); CREATININE 0.6 mg/dL (0.55-1.3)
[2021-06-08] MEDS: MUPIROCIN 2% TOPICAL OINTMENT FOR DECOLONIZATION NS SCH ×2 (10:00→21:48)
[2021-06-08] MEDS ORDERED: INSULIN (LEVEMIR) 100 UNITS/ML UNITS SQ ONE (13:15)
[2021-06-08 13:30] LABS: ALBUMIN 2.9 g/dl (3.4-5.0)
[2021-06-08 13:34] LABS: BILIRUBIN,DIRECT 0.1 mg/dL (0.0-0.2); BILIRUBIN,TOTAL 0.4 mg/dL (0.2-1)
[2021-06-08 13:36] LABS: TOT PROT 5.9 g/dl (6.4-8.2)
[2021-06-08] MEDS: LEVOTHYROXINE NA 125 MCG TABLET (FP) PO SCH (14:48)
[2021-06-08] MEDS: SODIUM CHLORIDE 0.45%/POT 20 MEQ/1,000 ML INFUS.BAG IV SCH (15:42)
[2021-06-08] MEDS ORDERED: INSULIN (NOVOLOG) ASPART 100 UNITS/ML 10ML VIAL ONE (16:17)
[2021-06-08] MEDS: INSULIN SLIDING SCALE (NOVOLOG) 1 VIAL SQ SCH ×2 (16:19→21:24)
[2021-06-08] MEDS: CHLORHEXIDINE GLUCONATE 4% CLEANSER FOR DECOLONIZATION TP SCH (21:48)
[2021-06-08] MEDS ORDERED: INSULIN (LEVEMIR) 100 UNITS/ML UNITS SQ SCH (22:00)
[2021-06-08] MEDS ORDERED: CEFTRIAXONE 1 GM in DEXTROSE 5%-WATER - 50 ML IVPB SCH (23:32)
[2021-06-09] MEDS ORDERED: cefTRIAXone SODIUM 1 GM VIAL ONE (00:17)
[2021-06-09] MEDS ORDERED: DEXTROSE 5%-WATER - 50 ML IVPB ONE (00:17)
[2021-06-09] MEDS: SODIUM CHLORIDE 0.45%/POT 20 MEQ/1,000 ML INFUS.BAG IV SCH ×2 (00:21→12:59)
[2021-06-09] MEDS: LEVOTHYROXINE NA 125 MCG TABLET (FP) PO SCH (06:12)
[2021-06-09] MEDS: INSULIN SLIDING SCALE (NOVOLOG) 1 VIAL SQ SCH ×3 (06:13→16:53)
[2021-06-09] MEDS ORDERED: INSULIN (LEVEMIR) 100 UNITS/ML UNITS SQ SCH ×2 (07:00→22:00)
[2021-06-09] MEDS ORDERED: AMOX TR/POT CLAV 500MG/125MG TABLETS (FP) PO SCH (08:00)
[2021-06-09] MEDS: INSULIN REGULAR 100 UNITS in SODIUM CHLORIDE 99 ML IVPB SCH (08:47)
[2021-06-09] MEDS: MUPIROCIN 2% TOPICAL OINTMENT FOR DECOLONIZATION NS SCH (09:39)
[2021-06-09 09:57] LABS: HEMATOCRIT 41.1 % (35.4-49); MCH 31.8 pg (25.7-33.7); MEAN CELL VOLUME 93.5 fl (80-96); MEAN PLT VOLUME 7.9 fl (7.5-11.1); PLATELET COUNT 277 10^3/uL (134-434); RDW 12.8 % (11.9-15.9); WHITE BLOOD COUNT 3.6 K/mm3 (4.0-10.0)
[2021-06-09 10:19] LABS: CALCIUM 8.4 mg/dL (8.5-10.1)
[2021-06-09 10:21] LABS: BLOOD UREA NITROGEN 10.9 mg/dL (7-18); MAGNESIUM 2.1 mg/dL (1.8-2.4)
[2021-06-09 10:23] LABS: BILIRUBIN,DIRECT 0.1 mg/dL (0.0-0.2); CREATININE 0.5 mg/dL (0.55-1.3); PHOSPHOROUS 2.3 mg/dL (2.5-4.9)
[2021-06-09 10:24] LABS: BILIRUBIN,TOTAL 0.3 mg/dL (0.2-1); TOT PROT 6.2 g/dl (6.4-8.2)
[2021-06-09] MEDS ORDERED: NAPH,MB-DB/K PH,MBDB POWDER PACKET PO ONE (12:00)
[2021-06-09] MEDS: SODIUM PHOSPHATE - 30 MM in SODIUM CHLORIDE 500 ML IVPB ONE (13:30)
[2021-06-09 14:18] VITALS: BP 140/95; PULSE 92; TEMP 97.7
[2021-06-09 16:03] VITALS: BMI 17.5
[2021-06-09] MEDS ORDERED: SODIUM CHLORIDE 0.45% 1,000 ML IV SCH (17:30)
[2021-06-09 17:34] LABS: CALCIUM 8.8 mg/dL (8.5-10.1)
[2021-06-09 17:36] LABS: ALBUMIN 3.1 g/dl (3.4-5.0)
[2021-06-09 17:39] LABS: BILIRUBIN,TOTAL 0.4 mg/dL (0.2-1); CREATININE 0.4 mg/dL (0.55-1.3)
[2021-06-09 17:41] LABS: TOT PROT 6.4 g/dl (6.4-8.2)
== END 2021-06-09 18:44 | disposition home or self-care (01) | DRG 420 ==
LOC: JER 07:00 → JERBED 11:30 → JICU 12:08 → J6S 06-08 15:30
PROVIDERS: ADMIT Internal Medicine Pulmonary Disease; ATTEND Internal Medicine
DX: E11.10 Type 2 diabetes mellitus with ketoacidosis without coma (principal); E03.9 Hypothyroidism, unspecified; R11.2 Nausea with vomiting, unspecified; R07.89 Other chest pain; E86.0 Dehydration; R16.2 Hepatomegaly with splenomegaly, not elsewhere classified; K76.0 Fatty (change of) liver, not elsewhere classified; N13.30 Unspecified hydronephrosis; R63.0 Anorexia; Z68.1 Body mass index [BMI] 19.9 or less, adult; N39.0 Urinary tract infection, site not specified; B96.20 Unspecified Escherichia coli [E. coli] as the cause of diseases classified elsewhere; Z91.14 Patient's other noncompliance with medication regimen
CPT/HCPCS: 36415; 71045-TC-FY; 74181-TC; 76705-TC; 80048; 80053; 80061; 80076; 81003; 82010; 82550; 82803; 82962; 82977; 83605; 83690; 83735; 84100; 84439; 84443; 84484; 85025; 85027; 85610; 85730; 86705; 86708; 86803; 87040; 87086; 87186; 87340; 87517; 93005; 93010; 99285-25; C9803; J3480; U0003; U0005

== ENCOUNTER 2022-12-11 04:53 | Day surgery (SDC) | payer OTHER ==
[2022-12-10 09:49] VITALS: BMI 19.1
[2022-12-11] MEDS ORDERED: PROPOFOL 40 ML ONE (14:28)
[2022-12-11] MEDS ORDERED: SUCCINYLCHOLINE CHLORIDE 200 MG/10 ML SYRINGE ONE (14:30)
[2022-12-11] MEDS ORDERED: ceFAZolin SODIUM 1 GM VIAL IVPB ONE (14:42)
[2022-12-11] MEDS ORDERED: ONDANSETRON 4 MG/2 ML VIAL IVPUSH PRN (15:16)
[2022-12-11] MEDS ORDERED: oxyCODONE HCL 5 MG TABLET PO PRN ×2 (15:16)
[2022-12-11] MEDS ORDERED: LACTATED RINGERS SOLUTION 1,000 ML IV SCH (15:30)
[2022-12-11] MEDS ORDERED: oxyCODONE HCL 5 MG TABLET ONE (16:57)
[2022-12-11 17:18] VITALS: BP 119/80; PULSE 86; RESP 20; TEMP 97.2
== END 2022-12-11 17:32 | disposition home or self-care (01) ==
LOC: JASU-SURG 04:53
PROVIDERS: ATTEND Urology
PROC: 0T7D8ZZ Dilation of Urethra, Via Natural or Artificial Opening Endoscopic (ICD-10-PCS; principal; 2022-12-11 14:30)
DX: N53.19 Other ejaculatory dysfunction (principal)
CPT/HCPCS: 82962; 94760